=== PATIENT | male | born 1970 | race Caucasian/White ===

== ENCOUNTER 2020-02-24 00:22 | Emergency (ER) | payer BC ==
[2020-02-24] MEDS ORDERED: hydrOXYzine HCL 100 MG/2 ML SDV IM ONE (00:58)
--- NOTE | 2020-02-24 01:04 | EDM.PDOC ---
ED HPI GENERAL MEDICAL PROBLEM - General Chief Complaint: Allergic Reaction Stated Complaint: ALLERGIC REACTION TO MEDICATION Time Seen by Provider: 02/24/20 00:59 Source of Information: Reports: Patient History Limitations: Reports: No Limitations - History of Present Illness INITIAL COMMENTS - FREE TEXT/NARRATIVE: pt had 4 humira injections today and he developed hives around the site. He now is very itchy all over. He took 75 mg of benadryl when the hives developed and the hives got better but he now is still very itchy. he does not feel sob. Onset: Today, Sudden Duration: Hour(s): Location: Reports: Chest Associated Symptoms: Reports: Other (pt is itching markedly. ) Treatments [employer]: Reports: Other Medication(s) - Related Data Allergies Allergy/AdvReac Type Severity Reaction Status Date / Time codeine Allergy Agitation Verified 02/24/20 00:41 Penicillins Allergy Rash Verified 02/24/20 00:41 rifampin Allergy Chest Pain Verified 02/24/20 00:41 cats Allergy Airway Uncoded 02/24/20 00:41 Tightness Past Medical History Cardiovascular History: Reports: High Cholesterol, Hypertension Gastrointestinal History: Reports: GERD, Other (See Below) Other Gastrointestinal History: Barretts esophagus Neurological History: Reports: Concussion Endocrine/Metabolic History: Reports: Diabetes, Type II, Obesity/BMI 30+ Immunologic History: Reports: Immunosuppression, Other (See Below) Other Immunologic History: started on humira today Dermatologic History: Reports: Other (See Below) Other Dermatologic History: cyst disorder - Past Surgical History GI Surgical History: Reports: EGD Social & Family History - Tobacco Use Smoking Status *Q: Never Smoker - Caffeine Use Caffeine Use: Reports: Soda, Tea - Recreational Drug Use Recreational Drug Use: No ED ROS ALLERGIC REACTION - Review of Systems Review Of Systems: See Below Constitutional: Reports: No Symptoms HEENT: Reports: No Symptoms Respiratory: Reports: No Symptoms Cardiovascular: Reports: No Symptoms Endocrine: Reports: No Symptoms GI/Abdominal: Reports: No Symptoms : Reports: No Symptoms Musculoskeletal: Reports: No Symptoms Skin: Reports: Pruritis, Other (pt developed hives from the humira and is now very itchy. ) ED EXAM GENERAL NO PERIP PULSE - Physical Exam Exam: See Below Text/Narrative:: pt had an allergic reaction to the humira around the injection sites. he is now itching all over. He feels that the hives are much better. He is not sob. Exam Limited By: No Limitations General Appearance: Alert, No Apparent Distress, Anxious Ears: Normal TMs Nose: Normal Inspection Throat/Mouth: Normal Inspection Head: Atraumatic Neck: Normal Inspection Respiratory/Chest: No Respiratory Distress Cardiovascular: Regular Rate, Rhythm GI/Abdominal: Soft, Non-Tender (Male) Exam: Deferred Rectal (Males) Exam: Deferred Back Exam: Normal Inspection Extremities: Normal Inspection Course - Orders/Labs/Meds Orders: Active Orders 24 hr Category Date Time Status hydrOXYzine HCL [Vistaril] Med 02/24/20 00:58 Once 50 mg IM ONETIME ONE - Re-Assessments/Exams Free Text/Narrative Re-Assessment/Exam: 02/24/20 01:06 pt was given vistaril 50 mg im. Departure - Departure Time of Disposition: :06 Disposition: Home, Self-Care 01 Condition: Fair Clinical Impression: Allergic reaction - Discharge Information Referrals: PCP,None [Primary Care Provider] - Care Plan Goals: discuss with his regular Dr regarding the use of humira in the lite of the allergic reaction, vistaril 50 mg q6h prn for itching. - My Orders Last 24 Hours: My Active Orders 02/24/20 00:58 hydrOXYzine HCL [Vistaril] 50 mg IM ONETIME ONE - Assessment/Plan Last 24 Hours: My Active Orders 02/24/20 00:58 hydrOXYzine HCL [Vistaril] 50 mg IM ONETIME ONE
== END 2020-02-24 01:22 | disposition home or self-care (01) ==
LOC: JP.ED 00:22
DX: L50.0 Allergic urticaria (principal); I10 Essential (primary) hypertension; E11.9 Type 2 diabetes mellitus without complications; E66.9 Obesity, unspecified; Z68.41 Body mass index [BMI] 40.0-44.9, adult; Z88.1 Allergy status to other antibiotic agents; Z88.5 Allergy status to narcotic agent; Z88.0 Allergy status to penicillin; Z91.09 Other allergy status, other than to drugs and biological substances
CPT/HCPCS: 96372; 99283; J3410